=== PATIENT | female | born 1985 | race Caucasian/White ===

== ENCOUNTER 2017-08-21 00:49 | Emergency (ER) | payer OTHER, MEDICAID ==
[~2017-08-21] VITALS: Ht 152.4 cm; Wt 72.6 kg
[~2017-08-21 00:49] MED LIST: DIFLUCAN200 MG PO; MEDROLDOSEPACK PO; PROAIR HFA8.5 GM INH
[2017-08-21] MEDS ORDERED: PREDNISONE (01:01)
[2017-08-21 02:03] LABS: URINE BILIRUBIN NEGATIVE (Negative); URINE BLOOD NEGATIVE (Negative); URINE CLARITY CLEAR; URINE COLOR YELLOW; URINE GLUCOSE-RANDOM NEGATIVE (Negative); URINE KETONES NEGATIVE (Negative); URINE LEUKOCYTES-REFLEX 1+ (Negative); URINE NITRITE-REFLEX NEGATIVE (Negative); URINE PROTEIN NEGATIVE (Negative); URINE SPECIFIC GRAVITY >= 1.030 (1.005-1.030); URINE UROBILINOGEN 0.2 E.U./dl (0.2-1.0)
[2017-08-21 02:38] LABS: SQUAMOUS >10 Many /LPF (0-3)
[2017-08-21 02:39] LABS: CASTS None Seen /LPF (None Seen); MUCUS 4-6 Moderate strn/LPF (None Seen); URINE RBC 0-2 Rare /HPF (0-2)
[2017-08-21 02:40] LABS: CRYSTALS None Seen /LPF (None Seen)
[2017-08-21 02:59] VITALS: BP 132/70
== END 2017-08-21 03:01 | disposition home or self-care (01) ==
LOC: M.ERS 00:49
PROVIDERS: Personal Emergency Response Attendant
DX: Z20.2 Contact with and (suspected) exposure to infections with a predominantly sexual mode of transmission (principal); J45.909 Unspecified asthma, uncomplicated

== ENCOUNTER 2020-01-29 01:56 | Emergency (ER) | payer OTHER, MEDICAID ==
[~2020-01-29] VITALS: Ht 152.4 cm; Wt 74.8 kg
[~2020-01-29 01:56] MED LIST changes: +PREDNISONE
[2020-01-29 02:08] VITALS: BP 116/69
[2020-01-29] MEDS ORDERED: BACTRIM DS TAB1 EAC1 PO (02:11)
== END 2020-01-29 02:23 | disposition home or self-care (01) ==
LOC: M.ERS 01:56
DX: L03.116 Cellulitis of left lower limb (principal); J45.909 Unspecified asthma, uncomplicated